=== PATIENT | female | born 1940 | race Two or more races ===

== ENCOUNTER 2018-07-19 01:43 | Inpatient (IN) | payer MEDICARE, OTHER ==
[~2018-07-19] VITALS: Ht 149.9 cm; Wt 42.7 kg
[2018-07-19] MEDS ORDERED: DEXTROSE 50%, 50ML SYRINGE ONE ×2 (01:58→08:12)
[2018-07-19] MEDS ORDERED: SODIUM CHLORIDE FLUSH 10ML SYR IVF ONE (02:00)
[2018-07-19 02:18] LABS: BASOPHILS # (AUTO) 0.01 x10^3/uL (0-0.1); BASOPHILS % (AUTO) 0 % (0-1); EOSINOPHILS # (AUTO) 0.01 x10^3/uL (0-0.4); EOSINOPHILS % (AUTO) 0 % (1-7); LYMPHOCYTES # (AUTO) 0.42 x10^3/uL (1-3.4); LYMPHOCYTES % (AUTO) 7 % (22-44); MD NO; MEAN CORPUSCULAR HEMOGLOBIN 30.5 pg (27.0-34.8); MEAN CORPUSCULAR HGB CONC 32.7 g/dL (32.4-35.8); MEAN CORPUSCULAR VOLUME 93.4 fL (80-100); MEAN PLATELET VOLUME 8.1 fL (7.4-10.4); MONOCYTES # (AUTO) 0.18 x10^3/uL (0.2-0.8); MONOCYTES % (AUTO) 3 % (2-9); NEUTROPHILS # (AUTO) 5.91 x10^3/uL (1.8-6.8); NEUTROPHILS % (AUTO) 91 % (42-75); PLATELET COUNT 325 x10^3/uL (130-400); RED BLOOD COUNT 2.91 x10^6/uL (3.82-5.3)
[2018-07-19 02:23] LABS: ANION GAP 12 mmol/L (5-15); CALCIUM 7.7 mg/dL (8.5-10.1); CHLORIDE 103 mmol/L (98-107); CREATININE 0.85 mg/dL (0.55-1.02)
[2018-07-19] MEDS ORDERED: DEXTROSE 50%, 50ML SYRINGE IVPush ONE (02:30)
[2018-07-19] MEDS ORDERED: DEXTROSE 10%, 250ML IVPB ONE (02:30)
[2018-07-19] MEDS ORDERED: GLIP5TAB10 PO (03:08)
[2018-07-19] MEDS ORDERED: METF500T17 PO (03:08)
[2018-07-19] MEDS ORDERED: OMEP40CA6 PO (03:08)
[2018-07-19] MEDS ORDERED: LISI2.5T PO (03:08)
[2018-07-19] MEDS ORDERED: AMOX-291 PO (03:08)
[2018-07-19] MEDS ORDERED: CLAR500T PO (03:08)
[2018-07-19 03:38] LABS: MICROSCOPIC NOT IND
[2018-07-19 03:44] LABS: CULTURE INDICATED? NO
[2018-07-19] MEDS ORDERED: ACETAMINOPHEN 325 MG TABLET PO PRN (04:30)
[2018-07-19] MEDS ORDERED: DEXTROSE 10% 1,000 ML IV SCH (04:30)
[2018-07-19] MEDS ORDERED: ONDANSETRON ODT 4 MG PO PRN (04:30)
[2018-07-19] MEDS ORDERED: BUTALB/APAP/CAFFEINE 50MG/325MG/40MG PO PRN (04:30)
[2018-07-19] MEDS ORDERED: POLYETHYLENE GLYCOL 17 GM PACKET PO PRN (04:30)
[2018-07-19] MEDS ORDERED: ONDANSETRON 2MG/ML, 2ML IVPush PRN (04:30)
[2018-07-19 05:32] VITALS: BP 162/56
[2018-07-19] MEDS: LISINOPRIL 5 MG TABLET PO SCH (08:20)
[2018-07-19] MEDS: OMEPRAZOLE 20 MG CAPSULE.DR PO SCH (08:20)
[2018-07-19] MEDS: CLARITHROMYCIN 500 MG TABLET PO SCH ×2 (08:20→20:59)
[2018-07-19] MEDS: AMOXICILLIN 500 MG CAPSULE PO SCH ×2 (08:21→20:59)
[2018-07-19] MEDS ORDERED: D5%-0.9% NACL 1,000 ML IV SCH (17:00)
[2018-07-19 17:11] VITALS: BP 145/81
[2018-07-19] MEDS: D5%-0.9% NACL 1,000 ML IV SCH (18:06)
[2018-07-19 19:47] VITALS: BP 113/63
[2018-07-20 00:23] VITALS: BP 106/64
[2018-07-20] MEDS ORDERED: DEXTROSE 10% 1,000 ML IV SCH (04:30)
[2018-07-20 04:46] LABS: CHLORIDE 110 mmol/L (98-107)
[2018-07-20 04:50] LABS: ANION GAP 9 mmol/L (5-15); CREATININE 0.78 mg/dL (0.55-1.02)
[2018-07-20] MEDS: D5%-0.9% NACL 1,000 ML IV SCH (06:26)
[2018-07-20 06:30] VITALS: BP 146/71
[2018-07-20] MEDS: LISINOPRIL 5 MG TABLET PO SCH (09:00)
[2018-07-20] MEDS: OMEPRAZOLE 20 MG CAPSULE.DR PO SCH (09:11)
[2018-07-20] MEDS: CLARITHROMYCIN 500 MG TABLET PO SCH (09:11)
[2018-07-20] MEDS: AMOXICILLIN 500 MG CAPSULE PO SCH (09:11)
[2018-07-20 13:40] VITALS: BP 145/70
== END 2018-07-20 15:50 | disposition home health service (06) | DRG 637 ==
LOC: ED 03:13 → EDIP 04:08 → CCU 04:52 → 3NE 16:50 → DCLOUNGE 07-20 15:35
PROVIDERS: ADMIT Hospitalist; ATTEND Hospitalist
DX: E11.649 Type 2 diabetes mellitus with hypoglycemia without coma (principal); G93.41 Metabolic encephalopathy; I10 Essential (primary) hypertension; D64.9 Anemia, unspecified; Z86.19 Personal history of other infectious and parasitic diseases; Z87.11 Personal history of peptic ulcer disease; Z86.73 Personal history of transient ischemic attack (TIA), and cerebral infarction without residual deficits; Z79.2 Long term (current) use of antibiotics; Z79.899 Other long term (current) drug therapy; W18.39XA Other fall on same level, initial encounter; Y93.89 Activity, other specified; Y92.89 Other specified places as the place of occurrence of the external cause; Y99.8 Other external cause status
CPT/HCPCS: 36415; 70450; 72125; 80048; 81003; 82962; 83735; 84100; 85025; 87081; 96374; 99291; G0378; J7042

== ENCOUNTER → 2018-07-27 | Outpatient (CLI) | payer MEDICARE ==
[~2018-07-27] MED LIST: AMOX-291 PO; CLAR500T PO; GLIP5TAB10 PO; LISI2.5T PO; METF500T17 PO; OMEP40CA6 PO
== END | disposition home or self-care (01) ==
LOC: CFH 15:28
PROVIDERS: ATTEND Family Medicine
DX: M17.12 Unilateral primary osteoarthritis, left knee (principal); E11.9 Type 2 diabetes mellitus without complications